=== PATIENT | male | born 1980 | race Two or more races ===

== ENCOUNTER 2025-06-06 20:27 | Emergency (ER) | payer MEDICAID, SELFPAY ==
[2025-06-06 20:30] VITALS: BMI 22.2
--- NOTE | 2025-06-06 21:27 | EKG_ITS ---
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
[2025-06-06 21:29] VITALS: BP 110/70; PULSE 51; RESP 19; TEMP 36.8; O2SAT 98
--- NOTE | 2025-06-06 21:33 | XR_ITS ---
Examination: PA lateral chest 2 views TECHNIQUE: Upright PA and lateral chest 2 views Date and time: June 06, 2025 2146 hours INDICATIONS: Chest pain with coughing beginning several weeks ago. FINDINGS: Mild accentuation of basilar bronchovascular markings Normal heart size. Mild osteopenia IMPRESSION: Basilar bronchitis pattern
--- NOTE | 2025-06-06 23:14 | EDNOTE_ITS ---
ED General RME/HPI General Chief complaint: General Adult/Misc Complain Stated complaint: WEAK, HOT AND COLD, CP, LOWE BACK PAIN Time Seen by Provider: 06/06/25 22:25 Arrival date/time: 06/06/25 20:27 RME / HPI RME / HPI narrative: 44-year-old male presents to the ED with a complaint of feeling feverish and chilled, cough with yellow to green sputum, low back pain, body aches, generalized weakness, nasal and sinus congestion and frontal headache. He denies any ear pain or sore throat. He denies any nausea or vomiting, diarrhea or abdominal pain. There is a possibility of exposure to COVID. Related Data Previous Rx's ?Medication ?Instructions ?Recorded albuterol sulfate 90 mcg/actuation 2 puff inhalation Q 4H PRN 06/07/25 aerosol inhaler shortness of breath or wheez ing #8.5 grams azithromycin 250 mg tablet See Rx Instructions PO .COM PLEX #6 06/07/25 (Zithromax Z-Tanner) tabs Allergies Allergy/AdvReac Type Severity Reaction Status Date / Time No Known Allergies Allergy Verified 06/06/25 20:28 Review of Systems Review of Systems Systems Reviewed: All systems reviewed, normal except as documented Past Medical History Past Medical History NEUROLOGIC: Negative Neurological Disorders or Seizures CARDIAC: Negative Cardiac Disorders or Congestive Heart Failure RESPIRATORY: Negative Chronic Obstructive Pulmonary Disease (COPD) or Asthma GASTROINTESTINAL: Negative Gastrointestinal Disorders or Hepatitis GENITOURINARY: Negative Genitourinary Disorders or Renal Disease MUSCULOSKELETAL: Negative Musculoskeletal Disorders ENDOCRINE: Negative Endocrine Disorders, Diabetes Mellitus Type 1 or Diabetes Mellitus Type 2 HEMATOLOGIC: Negative Blood Disorders or Sickle Cell Disease OTHER HISTORY: Negative Falls, Blood Transfusions, Blood Transfusion Reaction, Anesthesia Reactions, MRSA or Cancer Family History FAMILY HISTORY: Negative Family Cardiac Disorders (unknown family medical history) Social History SMOKING STATUS: Never smoker ED Exam Narrative Physical exam: A&O, afebrile and non-toxic appearing 44-year-old male, no acute distress. Lung sounds reveal rhonchi and end expiratory wheezing. RRR, Abdomen is soft, nontender, non-distended. No CVA tenderness. Moves all extremities well. Course Course Course Narrative: COVID and influenza swabs are negative. Rapid strep is negative. CBC reveals a mildly elevated white count of 12.4 with normal H&H and normal platelets. CMP reveals a mildly elevated glucose of 112, normal renal function and normal liver function. Urinalysis reveals 15 RBCs, 2 WBCs and no bacteria. EKG reveals sinus bradycardia at a rate of 54. No STEMI. XR chest reveals bilateral bronchitis type pattern. CT abdomen and pelvis ordered due to hematuria. Preliminary results reveal: No evidence of renal/ureteral calculus or hydronephrosis. Positive centrilobular nodules with tree-in-bud appearance in the right lower lobe, suggestive of infection/pneumonia. There is a left renal cyst measuring upwards of 3 cm. The liver, gallbladder, pancreas, spleen, right kidney and adrenals are unremarkable. No evidence of bowel obstruction. There is no mesenteric or retroperitoneal adenopathy. The appendix is within normal limits. Patient was given Toradol 30 mg IM as well as ceftriaxone 2 g IM with lidocaine. Quality Measures none Orders Category Date Time Status Bedside COVID-19 Antigen Test NOW Care 06/06/25 23:17 Active Bedside Influenza A&B Antigen Test NOW Care 06/06/25 23:17 Completed EKG (ED ONLY) *Do not use* NOW Care 06/06/25 21:[address] abdomen pelvis wo con Stat Exams 06/07/25 00:09 Taken EKG (ED Only) Stat Exams 06/06/25 21:27 Draft XR chest 2V Stat Exams 06/06/25 21:33 Completed CBC Stat Lab 06/06/25 23:34 Completed CMP [Comprehensive Metabolic Panel] Stat Lab 06/06/25 23:34 Completed Strep A Rapid Stat Lab 06/06/25 23:25 Completed Urinalysis, C/S if Indicated Stat Lab 06/06/25 23:22 Completed Vital Signs Vital signs: Vital Signs Temperature 98.2 F 06/06/25 21:29 Pulse Rate 51 L 06/06/25 21:29 Respiratory Rate 19 06/06/25 21:29 Blood Pressure 110/70 06/06/25 21:29 Pulse Oximetry (%) 98 06/06/25 21:29 Discharge Plan Plan Patient Disposition: HOME (Self Care) Discharge Disposition comment: Stable Prescriptions/Referrals Prescriptions/Med Rec: New azithromycin [Zithromax Z-Tanner] 250 mg tablet See Rx Instructions .ROUTE .COMPLEX Qty: 6 0RF Rx Instructions: For 250 mg dose pack: take 500 mg today (day 1), then 250 mg for 4 days (days 2-5) albuterol sulfate 90 mcg/actuation HFA aerosol inhaler 2 puff inhalation Q4H PRN (Reason: shortness of breath or wheezing) Qty: 8.5 0RF Referrals: No Primary/Family,Physician [Primary Care Provider] - In 1 week Problem List Clinical Impression: Pneumonia, Hematuria Patient/Caregiver Discharge Instructions Education Materials: ED Hematuria, ED Pneumonia (Adult) Additional Instructions: Take the antibiotics as prescribed and complete the course even though you may be feeling better. Follow-up with your primary care physician in 24 to 48 hours. Return to the ED for any new or worsening symptoms. Print Language: Surinamese Stand Alone Forms: Patient Portal Info Letter CHAYITO/JUSTIN Supervising Physician CHAYITO/JUSTIN Supervising Physician: Dr. Wolfe [facility] Narrative MDM hospital course: Symptoms, exam and diagnostic studies are consistent with: Right lower lobe pneumonia with tree-in-bud appearance. Hematuria Patient was discharged home in stable condition. Patient/family advised to follow-up with their PCP in 24-48 hours. Encouraged to return to the ED for any new or worsening symptoms. Clinical Information Provided by patient Medical Records Reviewed None Meds/Rx Considered, not Ordered None Labs/Rad/Tests considered, not Ordered None Chronic Illness/Social Conditions which may negatively complicate care or outcome(s)-explain: None or not applicable EKG EKG Interpretation narrative: As noted above Lab Interpretation Labs: interpreted by me Lab(s) interpretation(s): As noted above Imaging Imaging interpretation: see narrative above Radiology reports / interpretation(s): As noted above Medication Administration(s) Toradol 30 mg IM and ceftriaxone 2 g IM with lidocaine. Diagnosis Differential diagnosis: Bronchitis, pneumonia, valley fever, hematuria, renal calculi, pyelonephros Differential dx and/or dx ruled out: Renal calculi, pyelonephritis Most likely dx, and/or detailed dx discussion: Right lower lobe pneumonia and hematuria. Dispositon Disposition: Discharge Home
[2025-06-06 23:27] LABS: Collection Type, Urine Clean Catch
[2025-06-06 23:35] LABS: Bilirubin,Urine Negative (Negative); Blood,Urine Trace (Negative); Clarity,Urine Clear (Clear/Hazy); Color,Urine Yellow (Lt Yel-Yel); Culture Indicated,Urine Not Indicated; Glucose, Urine Negative (Negative); Ketones,Urine Negative (Negative); Leukocyte Esterase,Urine Negative (Negative); Nitrite,Urine Negative (Negative); PH,Urine 6.0 (5.0-7.0); Protein,Urine Trace (Neg - Trace); RBC,Urine 15 /hpf (0-3); Specific Gravity,Urine 1.032 (1.001-1.035); Squamous Epithelial Cell,Urine < 1 /hpf (0-5); Urobilinogen,Urine 2.0 mg/dL (0.0-1.0); WBC,Urine 2 /hpf (0-5)
[2025-06-06 23:44] LABS: Basophils # (Auto) 0.0 Thou/mm3 (0.0-0.2); Basophils % (Auto) 0 % (0-2.5); Eosinophils # (Auto) 0.2 Thou/mm3 (0.0-0.5); Eosinophils % (Auto) 2 % (0-10); Hematocrit 42.4 % (41.0-53.0); Hemoglobin 14.2 g/dL (13.5-16.0); Immature Granulocytes Auto 0.07 Thou/mm3 (0.00-0.00); Lymphocytes # (Auto) 2.5 Thou/mm3 (1.0-4.8); Lymphocytes % (Auto) 21 % (10-50); Mean Corpuscular HGB Conc 33.5 g/dl (31.0-37.0); Mean Corpuscular Hemoglobin 30.4 pg (25.0-35.0); Mean Corpuscular Volume 91 fL (80-100); Monocytes # (Auto) 1.4 Thou/mm3 (0.0-0.8); Monocytes % (Auto) 11 % (0-12); Neutrophils # (Auto) 8.2 Thou/mm3 (1.8-7.7); Neutrophils % (Auto) 66 % (37-80); Nucleated Red Blood Cell # 0.00 Thou/mm3 (0.00-0.00); Nucleated Red Blood Cell % 0 /100 WBC (0); Platelet Count 234 Thou/mm3 (140-440); RDW Standard Deviation 42.2 fL (35.1-43.9); Red Blood Count 4.67 Miln/mm3 (4.50-5.90); White Blood Count 12.4 Thou/mm3 (3.8-10.6)
[2025-06-06 23:56] LABS: Strep A Rapid Negative (Negative)
[2025-06-07 00:03] LABS: Alanine Aminotransferase 22 U/L (10-49); Albumin, Serum 4.2 gm/dL (3.5-5.0); Albumin/Globulin Ratio 1.4 (1.2-2.2); Alkaline Phosphatase 80 U/L (46-116); Anion Gap 7 (7-16); Aspartate Amino Transferase 16 U/L (0-34); BUN/Creatinine Ratio 17 Ratio (12-20); Bilirubin,Total 0.6 mg/dL (0.3-1.2); Blood Urea Nitrogen 15 mg/dL (9-23); Calcium 9.1 mg/dL (8.3-10.6); Calcium (Corrected) 9.1 mg/dL (8.5-10.1); Carbon Dioxide 29.1 mMol/L (20.0-31.0); Chloride 104 mMol/L (98-107); Creatinine (Component) 0.9 mg/dL (0.6-1.3); Estimated Creatinine Clearance 102.0 mL/min (>60); Globulin 3.0 gm/dL (2.3-3.5); Glucose 112 mg/dL (74-106); Osmolality,Calculated 281 (275-295); Potassium 4.0 mMol/L (3.4-5.1); Sodium 140 mMol/L (136-145); Total Protein 7.2 gm/dL (5.7-8.2); eGFR > 60 See Note
--- NOTE | 2025-06-07 00:09 | XR_ITS ---
Examination: CT abdomen and pelvis without contrast. Coronal 3-D reconstructions. Sagittal 2-D reconstructions. Date and time of exam:June 07, 2025, 0033 hours INDICATIONS: Low back pain and abdominal pain beginning 2 weeks ago, flank pain, clinical diagnosis kidney stones CTDI: vol (mGy): 5.27 DLP: (mGycm): 303. Technique: Axial images of the abdomen have been obtained, 3 mm slice thickness Intravenous contrast material has not been administered. Low dose protocols were performed. One or more of the following dose reduction techniques were used; automated exposure control, adjustment of the mA and/or KV according to patient size, use of iterative reconstruction technique. Findings: Nodular parenchymal disease in the right lower lobe No focal liver or splenic lesions No gallstones No pancreatic mass Aorta normal size No bowel obstruction No renal or ureteral calculi. Normal appendix No bladder mass, negative. No significant prostatomegaly Intact osseous structures IMPRESSION: Nodular parenchymal disease right lower lobe, recommend repeat PA and lateral chest follow-up No renal or ureteral calculi, no hydronephrosis Normal appendix No bladder mass or bladder calculi
[2025-06-07 01:00] VITALS: BP 108/70; PULSE 62; RESP 19; TEMP 36.7; O2SAT 96
--- NOTE | 2025-06-07 01:51 | PRELIM_ITS ---
CT scan of the abdomen and pelvis without intravenous contrast (axial sections with sagittal and coronal reformats) June 07, 2025 0033 hours Clinical History: Rule out kidney stone Comparison: No prior study is available for comparison. Findings: There are centrilobular nodules with tree in bud appearance in the right lower lobe. There is a left renal cyst, measuring 3 cm. The liver, gallbladder, pancreas, spleen, right kidney and adrenals are unremarkable on this noncontrast study. No evidence of bowel obstruction. The appendix is within normal limits (coronal images 61-78/145). There is no mesenteric or retroperitoneal adenopathy. The urinary bladder is incompletely distended at the time of the examination. There is no free fluid or free air. Calcific densities are seen in the pelvis, likely representing phleboliths. A small fat-containing left inguinal hernia is present. Degenerative changes are identified in the spine. Impression: No evidence of renal/ureteric calculus or hydroureteronephrosis. Centrilobular nodules with tree in bud appearance in the right lower lobe, suggestive of infection/pneumonia. Recommend clinical correlation and follow-up. Other findings as described above. Report Electronically Signed By: Jonathan Lyles 06/07/2025 1:50:52 AM [EST]
[2025-06-07] MEDS: cefTRIAXone 2 GM, LIDOCAINE 1% 20 ML 4.2 ML IM (02:51)
[2025-06-07] MEDS: KETOROLAC INJ 30 MG/ML VIAL IM (02:52)
== END 2025-06-07 03:16 | disposition home or self-care (01) ==
PROVIDERS: Physician Assistant; Emergency Provider Emergency Medicine
DX: J18.9 Pneumonia, unspecified organism (principal); R31.9 Hematuria, unspecified; R91.1 Solitary pulmonary nodule; M54.50 Low back pain, unspecified; R10.9 Unspecified abdominal pain
CPT/HCPCS: 36415; 71046; 74176; 80053; 81001; 85025; 87400; 87651; 87811; 93005; 96372; 99283; J0696; J1885; J3490